=== PATIENT | female | born 1990 | race Caucasian/White ===

== ENCOUNTER 2024-04-08 09:42 | Emergency (ER) | payer OTHER ==
[~2024-04-08] VITALS: Ht 154.9 cm; Wt 77.1 kg
[2024-04-08 09:53] VITALS: BP 102/78; PULSE 51; RESP 18; TEMP 97.7; O2SAT 98
[2024-04-08] MEDS ORDERED: ONDA-188 SL (10:18)
[2024-04-08] MEDS ORDERED: FAMO-90 PO (10:18)
[2024-04-08] MEDS ORDERED: SUCR1TAB56 PO (10:18)
[2024-04-08] MEDS: ALUMINUM HYD/MAG/SIMETHICONE 30 ML UDC PO ONE (10:27)
== END 2024-04-08 10:31 | disposition home or self-care (01) ==
LOC: MED 09:42
DX: K29.70 Gastritis, unspecified, without bleeding (principal); Z79.1 Long term (current) use of non-steroidal anti-inflammatories (NSAID); Z79.899 Other long term (current) drug therapy
CPT/HCPCS: 99282; 99283